=== PATIENT | female | born 1965 | race Hispanic/Latino ===

== ENCOUNTER 2017-05-23 08:52 | Outpatient (CLI) | payer OTHER ==
--- NOTE | 2017-05-23 11:58 | MMO ---
BILATERAL SCREENING MAMMOGRAMS: Date: 05/23/17 This is a baseline exam. This patient's mammogram was interpreted with the assistance of computer-aided detection. FINDINGS: Scattered fibroglandular densities. No mass or distortion. No suspicious calcification. Recommend one year follow-up. IMPRESSION: BIRADS 1: Negative POS: JACOB
== END 2017-05-23 08:53 | disposition home or self-care (01) ==
LOC: SCSMAMMO 08:52
PROVIDERS: ATTEND Family Medicine
DX: Z12.31 Encounter for screening mammogram for malignant neoplasm of breast (principal)
CPT/HCPCS: 77067